=== PATIENT | female | born 1955 | race Caucasian/White ===

== ENCOUNTER → 2017-06-17 | Outpatient (CLI) | payer BC | LOC: BMCIMAGING 11:51 | PROVIDERS: ATTEND Nurse Practitioner Adult Health | DX: Z72.0 Tobacco use (principal) ==

== ENCOUNTER → 2017-06-25 | Outpatient (CLI) | payer BC | LOC: BMCIMAGING 13:58 | PROVIDERS: ATTEND Nurse Practitioner Adult Health | DX: Z12.31 Encounter for screening mammogram for malignant neoplasm of breast (principal); Z13.820 Encounter for screening for osteoporosis; M85.80 Other specified disorders of bone density and structure, unspecified site | CPT/HCPCS: G0202 ==

== ENCOUNTER → 2017-06-25 | Outpatient (CLI) | payer BC | LOC: FIMAGING 15:47 | PROVIDERS: ATTEND Nurse Practitioner Adult Health | DX: Z12.2 Encounter for screening for malignant neoplasm of respiratory organs (principal); Z87.891 Personal history of nicotine dependence; R91.8 Other nonspecific abnormal finding of lung field ==

== ENCOUNTER → 2017-07-03 | Outpatient (CLI) | payer BC | LOC: BMCIMAGING 07:48 | DX: N28.1 Cyst of kidney, acquired (principal) ==